=== PATIENT | female | born 1975 | race Caucasian/White ===

== ENCOUNTER 2016-12-03 15:30 | Emergency (ER) | payer OTHER, BC ==
[~2016-12-03] VITALS: Ht 152.4 cm; Wt 47.2 kg
[~2016-12-03 15:30] MED LIST: ADVIL,NUPRIN,M200 MG PO; ALBUTEROL SULF8.5 GM IH; AMBIEN10 MG PO; BACLOFEN10 MG PO; BACLOFEN20 MG PO; BUTALB-APAP-CA1 EACH PO; CARISOPRODOL350 MG PO; COPAXONE40 MG/1 ML SC; DIAZEPAM5 MG PO; DILAUDID2 MG PO; DILAUDID4 MG PO; DUONEB 2.5-0.5 M3 ML IH; FIORICET WI1 CAPSULE PO; HYDROMORPHONE HC4 MG PO; HYDROXYZINE PAM25 MG PO; LEVAQUIN750 MG PO; LEVOFLOXACIN750 MG PO; MEDROL DOSEPAK4 MG PO; MIRALAX17 GM PO; NEURONTIN300 MG PO; NICOTINE PATCH1 EAC1 TD; ONDANSETRON ODT8 MG PO; OXYCODONE HCL30 MG PO; OXYCONTIN30 MG PO; PREDNISONE10 M1 PO; PREDNISONE10 MG PO; PREDNISONE20 MG PO; PROMETHAZINE HC25 M1 PO; PROVENTIL,2.5 MG/3 M IH; ROBITUSSIN AC,T10 ML PO; SOMA350 MG PO; SYMBICORT60 INHALAT IH; TERAZOL 745 GM VG; VENTOLIN HFA18 GM IH; VISTARIL25 MG PO; VITAMIN B12-FO1 EACH PO; VITAMIN C PO; VITAMIN D5000 UNIT PO; VITAMIN E PO; ZOFRAN ODT8 MG PO; calcium PO
[2016-12-03 16:29] LABS: HEMATOCRIT 42.3 % (36.0-46.0); MCH 32.9 PG (29.0-34.0); MCHC 33.8 G/DL (30.0-36.0); MCV 97.5 FL (83-99); MEAN PLAT.VOLUME 10.2 uM^3 (9.5-12.4); PLATELET COUNT 257 K/uL (156-360); RBC DIS.WIDTH-CV 13.8 % (11.8-14.6); RBC DIS.WIDTH-SD 47.2 % (39-53); RED BLOOD COUNT 4.34 M/uL (3.80-5.20); WHITE BLOOD COUNT 27.4 K/uL (4.1-10.2)
[2016-12-03 16:37] LABS: CHLORIDE 109 mEq/L (99-109); POTASSIUM 3.4 mEq/L (3.7-5.4); SODIUM 139 mEq/L (136-147)
[2016-12-03 16:39] LABS: GLUCOSE 78 mg/dL (70-99)
[2016-12-03 16:41] LABS: ANION GAP 9 MEQ/L (2-14)
[2016-12-03 16:43] LABS: GFR ESTIMATE (CALCULATED) > 59 mL/min/
[2016-12-03 16:44] LABS: UREA NITROGEN (BUN) 7 mg/dL (9-23)
[2016-12-03 16:50] LABS: TROP-I INTERPRETATION NEGATIVE; TROPONIN-I < 0.01 ng/mL (0.0-0.30)
[2016-12-03 16:51] LABS: QUANTITATIVE HCG < 4.0 MIU/ML
[2016-12-03 19:02] VITALS: BP 96/60
== END 2016-12-03 19:12 | disposition home or self-care (01) ==
LOC: EME 15:30
PROVIDERS: Emergency Medicine
DX: R55 Syncope and collapse (principal); E87.6 Hypokalemia; D72.829 Elevated white blood cell count, unspecified; R51 Headache; G89.29 Other chronic pain; Z79.891 Long term (current) use of opiate analgesic; J44.9 Chronic obstructive pulmonary disease, unspecified; J45.909 Unspecified asthma, uncomplicated; F17.200 Nicotine dependence, unspecified, uncomplicated
CPT/HCPCS: 70450; 80048; 84484; 84702; 85027; 93005; 99281; 99285

== ENCOUNTER → 2017-07-15 | Outpatient (CLI) | payer OTHER, BC ==
[~2017-07-15] VITALS: Ht 151.1 cm; Wt 48.1 kg
[~2017-07-15] MED LIST changes: +ATIVAN0.5 MG PO; +BIOTIN10000 MCG PO; +CALCIUM PETITE1 EACH PO; +ELAVIL25 MG PO; +FLONASE16 G1 BOTH NARES; +OXYCONTIN10 MG PO; +PROAIR HFA8.5 GM IH; +REBIF SC; +SINGULAIR CHEWAB5 MG PO; +SPIRIVA18 MCG AEROSOL; +VITAMIN C250 MG PO; +VITAMIN E400 UNIT PO
[2017-07-15 09:50] LABS: BASOPHIL COUNT 0.1 K/uL (0-0.1); EOSINOPHIL (%) 0.6 % (0-5); EOSINOPHIL COUNT 0.1 K/uL (0-0.3); HEMATOCRIT 45.4 % (36.0-46.0); IMMATURE GRANULOCYTE (%) 0.6 % (0.0-0.7); IMMATURE GRANULOCYTE COUNT 0.1 K/uL; INSTRUMENT ABS NEUTROPHIL CT 12.6 K/uL; LYMPHOCYTE COUNT 2.4 K/uL (1.0-2.8); MCH 33.3 PG (29.0-34.0); MCHC 33.5 G/DL (30.0-36.0); MCV 99.6 FL (83-99); MEAN PLAT.VOLUME 10.3 uM^3 (9.5-12.4); MONOCYTE (%) 4.8 % (3-12); MONOCYTE COUNT 0.8 K/uL (0-0.8); NEUTROPHIL (%) 78.5 % (45-76); NEUTROPHIL COUNT 12.6 K/uL (1.8-6.4); PLATELET COUNT 299 K/uL (156-360); RBC DIS.WIDTH-SD 51.2 % (39-53); RED BLOOD COUNT 4.56 M/uL (3.80-5.20); WHITE BLOOD COUNT 16.1 K/uL (4.1-10.2)
[2017-07-15 09:58] LABS: PROTHROMBIN TIME 10.5 SEC (10.2-12.9)
[2017-07-15 10:01] LABS: PTT 31.4 SEC (25-37)
[2017-07-15 13:05] LABS: ABS NEUTROPHIL COUNT 12.2; EOSINOPHIL ABS CT 0; PLAT.SUFFICIENCY ADEQUATE
== END | disposition home or self-care (01) ==
LOC: OPR 09:00 → EDSTATUS 09:00 → OPR 09:06
PROVIDERS: Internal Medicine Hematology & Oncology
PROC: 07DR3ZX Extraction of Iliac Bone Marrow, Percutaneous Approach, Diagnostic (ICD-10-PCS; principal; 2017-07-15)
DX: D72.829 Elevated white blood cell count, unspecified (principal); D75.1 Secondary polycythemia; R91.8 Other nonspecific abnormal finding of lung field; R59.0 Localized enlarged lymph nodes; B37.0 Candidal stomatitis; F17.200 Nicotine dependence, unspecified, uncomplicated; G35 Multiple sclerosis; Z90.710 Acquired absence of both cervix and uterus; Z80.0 Family history of malignant neoplasm of digestive organs; Z82.5 Family history of asthma and other chronic lower respiratory diseases; Z82.49 Family history of ischemic heart disease and other diseases of the circulatory system; Z80.8 Family history of malignant neoplasm of other organs or systems; Z79.899 Other long term (current) drug therapy
CPT/HCPCS: 77012; 85007; 85025; 85610; 85730; J2405; J3010

== ENCOUNTER 2018-02-10 22:29 | Inpatient (IN) | payer OTHER ==
[~2018-02-10] VITALS: Ht 152.4 cm; Wt 45.5 kg
[~2018-02-10 22:29] MED LIST changes: +SPIRIVA RESPIMAT4 GM IH; -SPIRIVA18 MCG AEROSOL
[2018-02-10 23:29] LABS: PLATELET COUNT 344 K/uL (156-360)
[2018-02-10 23:30] LABS: HEMATOCRIT 43.8 % (36.0-46.0); HEMOGLOBIN 15.5 G/DL (11.9-15.5); MCH 34.1 PG (29.0-34.0); MCHC 35.4 G/DL (30.0-36.0); MCV 96.3 FL (83-99); RBC DIS.WIDTH-CV 13.4 % (11.8-14.6); RBC DIS.WIDTH-SD 48.1 % (39-53); RED BLOOD COUNT 4.55 M/uL (3.80-5.20); WHITE BLOOD COUNT 39.5 K/uL (4.1-10.2)
[2018-02-10 23:37] LABS: ALBUMIN 4.1 g/dL (3.2-4.8)
[2018-02-10 23:38] LABS: CHLORIDE 107 mEq/L (99-109); POTASSIUM 3.9 mEq/L (3.7-5.4); SODIUM 139 mEq/L (136-147)
[2018-02-10 23:40] LABS: GLUCOSE 101 mg/dL (70-99); TOTAL PROTEIN 7.1 g/dL (6.4-8.3)
[2018-02-10 23:42] LABS: TOTAL BILIRUBIN 0.4 mg/dL (0.0-1.0)
[2018-02-10 23:43] LABS: ALKALINE PHOSPHATASE 89 IU/L (3-129)
[2018-02-10 23:44] LABS: CREATININE 0.7 mg/dL (0.6-1.3); GFR ESTIMATE (CALCULATED) > 59 mL/min/
[2018-02-10 23:45] LABS: AST (GOT) 37 IU/L (2-34); UREA NITROGEN (BUN) 9 mg/dL (9-23)
[2018-02-10 23:46] LABS: ALT (GPT) 21 IU/L (3-49)
[2018-02-11 00:04] LABS: APPEARANCE CLEAR ((CLEAR)); BILIRUBIN NEGATIVE; BLOOD SMALL; COLOR STRAW ((YELLOW)); GLUCOSE (STRIP) NEGATIVE; KETONES NEGATIVE; LEUKOCYTES NEGATIVE; NITRITE NEGATIVE; PROTEIN (STRIP) NEGATIVE; SPECIFIC GRAVITY 1.004 (1.000-1.030); UROBILINOGEN 0.2 MG/DL (0.2-1.0)
[2018-02-11 00:09] LABS: BACTERIA 1+ /HPF; EPITHELIAL CELLS 1+ /HPF; MUCUS NONE SEEN /LPF; RED BLOOD CELLS 0-5 /HPF (0-5); UCUL ADDED? NO; WHITE BLOOD CELLS 0-5 /HPF (0-5)
[2018-02-11] MEDS ORDERED: HYDROMORPHONE HC4 MG PO (01:48)
[2018-02-11] MEDS ORDERED: CLINDAMYCIN PHO60 M1 TP (01:49)
[2018-02-11] MEDS ORDERED: NYSTATIN15 GM TP (01:49)
[2018-02-11] MEDS ORDERED: HYDROCORTISONE30 G2 TP (01:50)
[2018-02-11] MEDS ORDERED: ADVIL200 M1 PO (01:53)
[2018-02-11] MEDS ORDERED: LINZESS145 MCG PO (02:03)
[2018-02-11] MEDS ORDERED: LACTULOSE10 GM/151 PO (02:04)
[2018-02-11] MEDS ORDERED: SPIRIVA RESPIMAT4 G1 IH (02:06)
[2018-02-11 02:35] LABS: BASE EXCESS -5.5 mEq/L (-3 to +3); BICARBONATE 19.3 mEq/L (22-26); CARBOXY HGB 8.7 % (0-5); COMMENTS - BLOOD GASES C+; METHEMOGLOBIN 1.2 % (0-1.5); PCO2 35 mm Hg (35-45); PO2 80 mm Hg (80-100); SITE LR; pH 7.35 (7.35-7.45)
[2018-02-11 02:36] LABS: DEVICE NC; O2 FLOW 2 L/MIN; TOTAL RESP RATE 21 resp/min
[2018-02-11 03:46] VITALS: BP 100/64
[2018-02-11 06:20] LABS: BASOPHIL (%) 0.4 % (0-1); BASOPHIL COUNT 0.1 K/uL (0-0.1); EOSINOPHIL (%) 0.3 % (0-5); EOSINOPHIL COUNT 0.1 K/uL (0-0.3); HEMOGLOBIN 13.6 G/DL (11.9-15.5); IMMATURE GRANULOCYTE (%) 0.6 % (0.0-0.7); LYMPHOCYTE (%) 7.9 % (15-42); LYMPHOCYTE COUNT 1.8 K/uL (1.0-2.8); MCH 33.2 PG (29.0-34.0); MCV 97.6 FL (83-99); MONOCYTE (%) 3.9 % (3-12); MONOCYTE COUNT 0.9 K/uL (0-0.8); NEUTROPHIL (%) 86.9 % (45-76); NEUTROPHIL COUNT 20.1 K/uL (1.8-6.4); PLATELET COUNT 308 K/uL (156-360); RBC DIS.WIDTH-CV 13.7 % (11.8-14.6); RBC DIS.WIDTH-SD 48.9 % (39-53); WHITE BLOOD COUNT 23.1 K/uL (4.1-10.2)
[2018-02-11 06:40] LABS: CHLORIDE 109 MEQ/L (99-109); CREATININE 0.5 MG/DL (0.6-1.3); GFR ESTIMATE (CALCULATED) > 59 mL/min/; GLUCOSE 87 mg/dL (70-99); POTASSIUM 3.5 MEQ/L (3.7-5.4); SODIUM 141 MEQ/L (136-147); UREA NITROGEN (BUN) 6 mg/dL (9-23)
[2018-02-11 07:33] VITALS: BP 99/55
[2018-02-11 12:25] VITALS: BP 85/54
[2018-02-11 16:15] VITALS: BP 102/55
[2018-02-11 20:09] VITALS: BP 95/61
[2018-02-11 23:43] VITALS: BP 90/59
[2018-02-12 04:26] VITALS: BP 101/57
[2018-02-12 07:19] VITALS: BP 106/63
[2018-02-12 11:03] LABS: BASOPHIL (%) 0.6 % (0-1); BASOPHIL COUNT 0.1 K/uL (0-0.1); EOSINOPHIL (%) 0.8 % (0-5); EOSINOPHIL COUNT 0.1 K/uL (0-0.3); IMMATURE GRANULOCYTE (%) 0.6 % (0.0-0.7); LYMPHOCYTE (%) 11.6 % (15-42); LYMPHOCYTE COUNT 1.8 K/uL (1.0-2.8); MCH 33.4 PG (29.0-34.0); MCHC 33.3 G/DL (30.0-36.0); MCV 100.3 FL (83-99); MONOCYTE (%) 5.3 % (3-12); MONOCYTE COUNT 0.8 K/uL (0-0.8); NEUTROPHIL (%) 81.1 % (45-76); NEUTROPHIL COUNT 12.6 K/uL (1.8-6.4); PLATELET COUNT 292 K/uL (156-360); RBC DIS.WIDTH-CV 13.9 % (11.8-14.6); RBC DIS.WIDTH-SD 50.9 % (39-53); RED BLOOD COUNT 3.89 M/uL (3.80-5.20); WHITE BLOOD COUNT 15.5 K/uL (4.1-10.2)
[2018-02-12 11:05] VITALS: BP 109/51
[2018-02-12 11:53] LABS: CHLORIDE 111 MEQ/L (99-109); CREATININE 0.5 MG/DL (0.6-1.3); GFR ESTIMATE (CALCULATED) > 59 mL/min/; POTASSIUM 3.7 MEQ/L (3.7-5.4); SODIUM 140 MEQ/L (136-147); UREA NITROGEN (BUN) 4 mg/dL (9-23)
[2018-02-12 12:01] LABS: GLUCOSE 156 mg/dL (70-99)
[2018-02-12 15:29] VITALS: BP 99/52
[2018-02-12 19:15] VITALS: BP 105/52
[2018-02-13 07:34] VITALS: BP 109/65
[2018-02-13 11:28] VITALS: BP 110/68
[2018-02-13 14:01] LABS: CD4/CD8 Ratio 2.81 (0.86-5.00)
[2018-02-13 15:15] VITALS: BP 110/56
[2018-02-13 19:45] VITALS: BP 111/67
[2018-02-13 23:51] VITALS: BP 116/67
[2018-02-14 03:59] VITALS: BP 117/73
[2018-02-14 07:11] LABS: HEMATOCRIT 35.2 % (36.0-46.0); HEMOGLOBIN 11.6 G/DL (11.9-15.5); MCH 33.3 PG (29.0-34.0); MCV 101.1 FL (83-99); PLATELET COUNT 273 K/uL (156-360); RBC DIS.WIDTH-CV 13.6 % (11.8-14.6); RBC DIS.WIDTH-SD 50.3 % (39-53); RED BLOOD COUNT 3.48 M/uL (3.80-5.20); WHITE BLOOD COUNT 11.2 K/uL (4.1-10.2)
[2018-02-14 07:44] VITALS: BP 121/58
[2018-02-14 09:27] LABS: CHLORIDE 109 MEQ/L (99-109); CREATININE 0.5 MG/DL (0.6-1.3); GFR ESTIMATE (CALCULATED) > 59 mL/min/; SODIUM 141 MEQ/L (136-147); UREA NITROGEN (BUN) 6 mg/dL (9-23)
[2018-02-14 09:35] LABS: GLUCOSE 67 mg/dL (70-99)
[2018-02-14 11:19] LABS: HEMATOCRIT 41.2 % (36.0-46.0); HEMOGLOBIN 13.5 G/DL (11.9-15.5)
[2018-02-14] MEDS ORDERED: LEVAQUIN750 MG PO (13:31)
[2018-02-14] MEDS ORDERED: DUONEB 2.5-0.5 M3 ML AEROSOL ×2 (13:44→14:30)
== END 2018-02-14 15:01 | disposition home health service (06) | DRG 194 ==
LOC: EME 22:29 → 5SOUTH 02-11 01:57 → EDOF 02-11 01:57 → ENRESERV 02-11 01:58 → 5SOUTH 02-11 03:05
PROVIDERS: Hospitalist; Internal Medicine; Physician Assistant; Physician Assistant Medical
DX: J18.9 Pneumonia, unspecified organism (principal); J44.1 Chronic obstructive pulmonary disease with (acute) exacerbation; J45.901 Unspecified asthma with (acute) exacerbation; J44.0 Chronic obstructive pulmonary disease with (acute) lower respiratory infection; G35 Multiple sclerosis; G89.4 Chronic pain syndrome; F17.210 Nicotine dependence, cigarettes, uncomplicated; Z79.891 Long term (current) use of opiate analgesic; Z99.81 Dependence on supplemental oxygen; Z87.01 Personal history of pneumonia (recurrent); R09.02 Hypoxemia; F41.9 Anxiety disorder, unspecified; Z77.120 Contact with and (suspected) exposure to mold (toxic)
CPT/HCPCS: 36600; 71046; 71250; 80048; 80053; 81003; 82803; 83605; 85014; 85018; 85025; 85027; 86355 90; 86359 90; 86360 90; 87040; 87070; 87205; 87449; 94640; 94640 76; 94799; 99202; 99281; 99285; J0295; J0456; J0692; J0696; J1650; J2405; J3010; J7030; J7050; J7512